=== PATIENT | female | born 1950 | race Caucasian/White ===

== ENCOUNTER 2018-09-14 09:29 | Emergency (ER) | payer MEDICARE, OTHER ==
[2018-09-14] MEDS: IBUPROFEN 600 MG TAB PO (10:20)
== END 2018-09-14 12:33 | disposition home or self-care (01) ==
LOC: FTE 09:29
DX: S62.660A Nondisplaced fracture of distal phalanx of right index finger, initial encounter for closed fracture (principal); I10 Essential (primary) hypertension; E11.9 Type 2 diabetes mellitus without complications; V43.62XA Car passenger injured in collision with other type car in traffic accident, initial encounter
CPT/HCPCS: 29130; 73140; 73562; 99284-25